=== PATIENT | male | born 1995 | race Caucasian/White ===

== ENCOUNTER 2019-04-22 20:36 | Emergency (ER) | payer OTHER ==
[~2019-04-22] VITALS: Ht 170.2 cm; Wt 91.7 kg
[2019-04-22 20:59] VITALS: Ht 170.2 cm; Wt 91.7 kg
[2019-04-22 21:58] LABS: BASOPHIL % 0.5 % (0-2); PLATELET COUNT 332 x10^3mcL (130-400)
[2019-04-22 22:07] LABS: CALCIUM 9.7 mg/dL (8.5-10.1); CARBON DIOXIDE 31.2 mmol/L (21-32); CHLORIDE SERUM 105 mmol/L (98-107); GFR1 > 60 mL/min; GLUCOSE SERUM 91 mg/dL (74-106); POTASSIUM SERUM 3.9 mmol/L (3.5-5.1); SODIUM SERUM 145 mmol/L (136-145)
[2019-04-22 22:11] LABS: ALBUMIN 4.2 g/dL (3.4-5.0); ALKALINE PHOSPHATASE 75 U/L (46-116); ALT/SGPT 103 U/L (16-63); AST/SGOT 29 U/L (15-37); BILIRUBIN TOTAL 0.3 mg/dL (0.20-1.00); TOTAL PROTEIN, SERUM 8.1 g/dL (6.4-8.2)
[2019-04-23 02:11] VITALS: BP 136/87
== END 2019-04-23 02:11 | disposition home or self-care (01) ==
LOC: ED 20:36
DX: R10.30 Lower abdominal pain, unspecified (principal); R19.7 Diarrhea, unspecified; Z98.890 Other specified postprocedural states
CPT/HCPCS: 36415; J1885

== ENCOUNTER 2019-08-21 01:00 | Emergency (ER) | payer OTHER ==
[~2019-08-21] VITALS: Ht 172.7 cm; Wt 92.1 kg
[2019-08-21 01:06] VITALS: Ht 172.7 cm; Wt 92.1 kg
[2019-08-21 02:07] LABS: CALCIUM 9.1 mg/dL (8.5-10.1); CARBON DIOXIDE 24.4 mmol/L (21-32); CHLORIDE SERUM 105 mmol/L (98-107); CREATININE SERUM 0.8 mg/dL (0.7-1.3); GFR1 > 60 mL/min; GLUCOSE SERUM 111 mg/dL (74-106); POTASSIUM SERUM 3.7 mmol/L (3.5-5.1); SODIUM SERUM 141 mmol/L (136-145)
[2019-08-21 02:11] LABS: ALBUMIN 3.8 g/dL (3.4-5.0); ALKALINE PHOSPHATASE 82 U/L (46-116); ALT/SGPT 84 U/L (16-63); AST/SGOT 19 U/L (15-37); BASOPHIL % 0.6 % (0-2); BILIRUBIN TOTAL 0.27 mg/dL (0.20-1.00); PLATELET COUNT 290 x10^3mcL (130-400); RED CELL DISTRIBUTION WIDTH 12.7 % (11.5-14.5); TOTAL PROTEIN, SERUM 7.1 g/dL (6.4-8.2)
[2019-08-21 02:25] LABS: microscopic required? NO
[2019-08-21 02:32] LABS: UA SPECIFIC GRAVITY 1.025 (1.005-1.035); urine erythrocyte NEGATIVE (NEGATIVE)
[2019-08-21 04:49] VITALS: BP 125/82
== END 2019-08-21 05:52 | disposition home or self-care (01) ==
LOC: ED 01:00
PROVIDERS: Emergency Medicine
DX: R51 Headache (principal); R20.2 Paresthesia of skin; I10 Essential (primary) hypertension; Z98.890 Other specified postprocedural states
CPT/HCPCS: J2765